=== PATIENT | male | born 1955 | race Caucasian/White ===

== ENCOUNTER 2019-07-19 15:03 | Emergency (ER) | payer BC ==
[~2019-07-19] VITALS: Ht 182.9 cm; Wt 104.5 kg
[2019-07-19 15:09] VITALS: BP 154/85; TEMP 97.6
[2019-07-19] MEDS ORDERED: CRESTOR 10MG10 MG PO (15:31)
[2019-07-19] MEDS ORDERED: LOPRESSOR 225 MG/TAB PO (15:31)
[2019-07-19] MEDS ORDERED: LOPID 600M600 MG/TAB PO (15:32)
[2019-07-19] MEDS ORDERED: FLEXERIL 1010 MG/TAB PO (15:38)
[2019-07-19] MEDS ORDERED: PREDNISONE20 MG PO (15:38)
[2019-07-19] MEDS ORDERED: ULTRAM 50MG TAB50 MG PO (15:38)
[2019-07-19 16:27] VITALS: PULSE 59
== END 2019-07-19 16:27 | disposition home or self-care (01) ==
LOC: COL.ER 15:03
DX: M54.41 Lumbago with sciatica, right side (principal); E78.5 Hyperlipidemia, unspecified; Z90.49 Acquired absence of other specified parts of digestive tract; Z90.89 Acquired absence of other organs; Z88.0 Allergy status to penicillin
CPT/HCPCS: J7512

== ENCOUNTER → 2020-03-15 | Outpatient (CLI) | payer BC ==
[~2020-03-15] MED LIST: CRESTOR 10MG10 MG PO; FLEXERIL 1010 MG/TAB PO; LOPID 600M600 MG/TAB PO; LOPRESSOR 225 MG/TAB PO; PREDNISONE20 MG PO; ULTRAM 50MG TAB50 MG PO
== END ==
LOC: ZLAB.ENT 13:48
DX: H73.12 Chronic myringitis, left ear (principal)